=== PATIENT | male | born 1985 | race American Indian/Alaskan Native ===

== ENCOUNTER 2016-12-08 23:50 | Emergency (ER) | payer OTHER ==
--- NOTE | 2016-12-09 01:54 | XRay Report ---
FINAL REPORT EXAM: XR FOOT 2V LT HISTORY: LEFT FOOT PAIN TECHNIQUE: Two views of the left foot were submitted. FINDINGS: There are no skeletal or soft tissue abnormalities. IMPRESSION: Within normal limits.
[2016-12-09 02:22] LABS: Bilirubin,Urine NEG (Negative); Blood,Urine NEG (Negative); Ketones,Urine NEG (Negative); Leukocyte Esterase,Urine NEG (Negative); Nitrite,Urine NEG (Negative); Protein,Urine <15 mg/dL mg/dL (Negative); WBC,Urine < 1.0 /HPF (0.0-6.0)
[2016-12-09 05:50] VITALS: BP 147/74
[2016-12-09] MEDS ORDERED: MOTRIN PO ONE (07:27)
--- NOTE | 2016-12-09 07:28 | Emergency Department Report ---
ED Lower Extremity HPI - General Chief Complaint: Extremity Injury, Lower Stated Complaint: FOOT AND BACK PAIN Time Seen by Provider: 12/09/16 07:26 Source: patient Mode of arrival: Ambulatory Limitations: No Limitations - History of Present Illness Initial Comments: Patient here complaining of pain to his left foot after injured on 08/25/2016. He said he saw orthopedic doctor 2 weeks ago and given orthopedic boot which is a air cast. He is complaining of left foot pain and also lower back pain 1 week. He said he is has a history of back pain and he thinks it flared up again. Denies any urinary frequency, burning in her urgency. Denies any blood in urine. Denies reinjuring his foot. Denies any fever or chills. Denies any nausea or vomiting. Denies any radiation of pain to extremities from his back pain is in his left lower back. Denies any loss of bowel or bladder function. Pain to left lower back and left foot is 10 out of 10 and sore, painful left foot is throbbing. He said he did not take any [id number] medication he came to the emergency room. Patient was seen by another facility for left foot injury. He does have orthopedic doctor MD Complaint: foot injury (left foot pain from injury in August), other (F lower back pain) -: week(s) (1 week for back pain and 3-1/2 months for foot pain) Injury: Foot: Left (pain and left foot from previous injury) Type of Injury: other (since that he twisted his left ankle August 2016 and reported that he has ongoing back pain) Place: home Severity: severe Severity scale (0 -10): 9 Improves With: immobilization, rest Worsens With: weight bearing, movement, palpation Context: walking Associated Symptoms: able to partially bear weight. denies: snap/pop sensation , swelling, numbness, tingling Treatments Prior to Arrival: splint ( wearing an air boot cast) - Related Data Previous Rx's Medication Instructions Recorded Last Taken Type Methocarbamol [Robaxin TAB] 750 mg PO BID PRN #12 tab 12/09/16 Unknown Rx traMADol [Ultram] 50 mg PO Q6HR PRN #15 tablet 12/09/16 Unknown Rx Allergies Allergy/AdvReac Type Severity Reaction Status Date / Time Penicillins Allergy Unknown Verified 12/09/16 00:50 shellfish derived Allergy Angioedema Verified 12/09/16 00:50 ED Review of Systems ROS: Stated complaint: FOOT AND BACK PAIN Other details as noted in HPI Comment: All other systems reviewed and negative Constitutional: no symptoms reported Respiratory: no symptoms reported Cardiovascular: denies: chest pain, palpitations, dyspnea on exertion, orthopnea , edema, syncope, paroxysmal nocturnal dyspnea Gastrointestinal: denies: abdominal pain, nausea, vomiting, diarrhea, constipation Genitourinary: denies: urgency, dysuria, hematuria, discharge, testicular pain, testicular mass Musculoskeletal: back pain, arthralgia. denies: joint swelling, myalgia Skin: denies: rash Neurological: abnormal gait (from left foot injury). denies: headache, weakness , numbness, paresthesias, confusion, vertigo ED Past Medical Hx - Past Medical History Previous Medical History?: Yes Hx Asthma: Yes Additional medical history: LEFT FOOT SPRAIN - Surgical History Past Surgical History?: Yes Additional Surgical History: CIRCUMCISION - Family History Family history: hypertension - Social History Smoking Status: Never Smoker Substance Use Type: None - Medications Home Medications: Home Medications Medication Instructions Recorded Confirmed Last Taken Type Methocarbamol [Robaxin TAB] 750 mg PO BID PRN #12 tab 12/09/16 Unknown Rx traMADol [Ultram] 50 mg PO Q6HR PRN #15 tablet 12/09/16 Unknown Rx ED Physical Exam - General Limitations: No Limitations General appearance: alert, in no apparent distress - Head Head exam: Present: atraumatic, normocephalic, normal inspection - Eye Eye exam: Present: normal appearance, PERRL, EOMI. Absent: periorbital swelling , periorbital tenderness Pupils: Present: normal accommodation - ENT ENT exam: Present: normal exam, normal orophraynx, mucous membranes moist - Neck Neck exam: Present: normal inspection, full ROM, other (C-spine tenderness). Absent: tenderness, meningismus, lymphadenopathy - Respiratory Respiratory exam: Present: normal lung sounds bilaterally. Absent: respiratory distress, wheezes, rales, rhonchi, stridor, chest wall tenderness, accessory muscle use - Cardiovascular Cardiovascular Exam: Present: regular rate, normal rhythm, normal heart sounds. Absent: systolic murmur, diastolic murmur - GI/Abdominal GI/Abdominal exam: Present: soft, normal bowel sounds. Absent: distended, tenderness, guarding, rebound, rigid, organomegaly, mass, bruit, pulsatile mass , hernia - Extremities Exam Extremities exam: Present: normal capillary refill, joint swelling, other (no clubbing, cyanosis or edema to all extremities except for left foot with mild swelling and left ankle with mild swelling. +2 pulses in all extremities. No signs of neurovascular compromise). Absent: normal inspection, full ROM ( Limited of motion to left foot due to swelling and previous injury.), pedal edema, calf tenderness - Expanded Lower Extremity Exam Right Hip exam: Present: normal inspection, full ROM, pelvic stability. Absent: tenderness, swelling, abrasion, laceration, ecchymosis, deformity, crepidus, dislocation, erythema, external rotation, internal rotation, shortening Upper Leg exam: Present: normal inspection, full ROM. Absent: tenderness, swelling, abrasion, laceration, ecchymosis, deformity, crepidus, dislocation, erythema Knee exam: Present: normal inspection, full ROM, full knee extension. Absent: tenderness, swelling, abrasion, laceration, ecchymosis, deformity, crepidus, dislocation, erythema, effusion, pain w/ pronation/supination, posterior draw sign, pain/laxity with valgus, pain/laxity with varus Lower Leg exam: Present: normal inspection, full ROM. Absent: tenderness, swelling, abrasion, laceration, ecchymosis, deformity, crepidus, dislocation, erythema, palpable cord, Holden's sign Ankle exam: Present: tenderness, swelling (mild swelling). Absent: normal inspection, full ROM (Limited range of motion to ankle due to pain. Air cast removed from left lower extremity and noted mild swelling to left foot and ankle. Patient able to move but he said it's painful.), abrasion, laceration, ecchymosis, deformity, crepidus, dislocation, erythema Foot/Toe exam: Present: tenderness, swelling. Absent: normal inspection, full ROM (Limited range of motion to left foot due to previous injury. Patient with 2+ pulses.), abrasion, laceration, ecchymosis, dislocation, erythema, amputation , puncture wound, foreign body, calcaneal tenderness, tenderness at base of 5th metatarsal, nail avulsion, subungual hematoma Neuro vascular tendon exam: Present: no vascular compromise. Absent: pulse deficit, abnormal cap refill, motor deficit, sensory deficit, tendon deficit, extremity cold to touch, pallor, abnormal 2-point discrimination, decreased fine /light touch, foot drop, peroneal nerve deficit, significant pain with passive ROM of distal joint Gait: Positive: observed and limited by pain - Back Exam Back exam: Present: normal inspection, full ROM. Absent: tenderness, CVA tenderness (R), CVA tenderness (L), muscle spasm, paraspinal tenderness, vertebral tenderness, rash noted - Expanded Back Exam Expanded Back exam: Absent: saddle anesthesia Back exam: Negative Straight Leg Raising: Left, Right - Neurological Exam Neurological exam: Present: alert, oriented X3, abnormal gait (due to left foot and ankle injury that occurred in August 2016. Patient with air cast which was removed and his left foot examined and air cast replaced.), motor sensory deficit (S4/5 strength in left foot.), reflexes normal, other (no focal neurological deficit except that he has decreased strength to left foot due to injury and abnormal gait to left lower extremity due to previous injury.) - Psychiatric Psychiatric exam: Present: normal affect, normal mood - Skin Skin exam: Present: warm, dry, intact, normal color. Absent: rash ED Course Vital Signs 12/09/16 12/09/16 12/09/16 00:51 05:50 07:32 Temperature 97.0 F L 97.8 F Pulse Rate 74 64 Respiratory 18 18 16 Rate Blood Pressure 141/78 147/74 O2 Sat by Pulse 100 98 Oximetry - Reevaluation(s) Reevaluation #1: 12/09/16 08:25 Given Motrin 800 mg in the emergency room for pain. Air cast removed and the left foot and ankle examined and physical findings for mild swelling in the left foot and ankle. He has 2+ pedal pulses. No signs of neurovascular compromise. Air cast replaced and patient instructed to follow up with his orthopedic doctor for further management ED Lower Extremity MDM - Radiology Data Radiology results: report reviewed X-ray left foot reveals normal exam. There are no skeletal or soft tissue abnormalities. - Medical Decision Making ED course: Patient here reports that he injured his left foot and ankle in August 2016 and he saw his orthopedic doctor a couple weeks ago who placed him in air cast to his left lower extremity. He said he did not have any injury since then. He is having pain to the site and this is the closest hospital that he can get to. X-ray of left foot reveal no acute findings. Air cast was removed and foot examined and patient without any neurovascular compromise, he has 2+ pedal pulses the left foot. Air cast replaced and patient received Motrin 800 mg in the emergency room for pain which relieved his pain to 4 out of 10. I explained to patient that he will need to follow up with his orthopedic doctor to manage his foot and ankle injury and I will put him on Ultram to manage pain. He said he has an appointment with his orthopedic doctor coming up so I discussed with him that if he needs to see him sooner he should call the office today to schedule an appointment. Patient was understanding the discharge instruction and treatment plan. Patient back exam was normal he had no vertebral or paraspinal tenderness. He is able to ambulate with air cast with minimal limping. Discharged from the ED in stable condition Critical care attestation.: If time is entered above; I have spent that time in minutes in the direct care of this critically ill patient, excluding procedure time. ED Disposition Clinical Impression: Arthralgia of ankle or foot, left, Acute exacerbation of chronic low back pain Disposition: DC- TO HOME OR SELFCARE Is pt being admited?: No Does the pt Need Aspirin: No Condition: Stable Instructions: Arthralgia (ED), Back Pain (ED) Additional Instructions: call your orthopedic doctor today to schedule an early appointment for follow- up visit for pain control Take Ultram and Robaxin as needed for pain but please do not drive or operate any heavy machinery as these medication causes drowsiness Prescriptions: Methocarbamol [Robaxin TAB] 750 mg PO BID PRN #12 tab PRN Reason: Pain traMADol [Ultram] 50 mg PO Q6HR PRN #15 tablet PRN Reason: Pain Referrals: PRIMARY CARE, [Primary Care Provider] - 3-5 Days your ,orthopedic doctor [Other] - 12/10/16 GODFREY TONG MD [Staff Physician] - 12/10/16 Forms: Work/School Release Form(ED)
== END 2016-12-09 08:47 | disposition home or self-care (01) ==
LOC: ED 23:50
DX: M79.672 Pain in left foot (principal); M54.5 Low back pain; G89.29 Other chronic pain; Z88.0 Allergy status to penicillin; Z91.013 Allergy to seafood
CPT/HCPCS: 81001; 99284

== ENCOUNTER 2017-10-16 20:06 | Emergency (ER) | payer SELFPAY ==
[2017-10-16 20:32] VITALS: BP 160/80
[2017-10-16 21:21] LABS: Basophils % (Auto) 0.3 % (0.0-1.8); Eosinophils # (Auto) 0.2 K/mm3 (0.0-0.4); Eosinophils % (Auto) 2.4 % (0.0-4.3); Hematocrit 42.3 % (35.5-45.6); Hemoglobin 13.3 gm/dl (11.8-15.2); Lymphocytes % (Auto) 30.3 % (13.4-35.0); Mean Corpuscular HGB Conc 32 % (32-34); Mean Corpuscular Volume 75 fl (84-94); Monocytes # (Auto) 0.5 K/mm3 (0.0-0.8); Monocytes % (Auto) 8.2 % (0.0-7.3); Platelet Count 223 K/mm3 (140-440); Red Blood Count 5.67 M/mm3 (3.65-5.03); Red Cell Distribution Width 14.3 % (13.2-15.2)
[2017-10-16 21:26] LABS: Mean Corpuscular Hemoglobin 24 pg (28-32)
--- NOTE | 2017-10-16 21:28 | XRay Report ---
FINAL REPORT EXAM: XR ANKLE 3+V LT HISTORY: left ankle pain and swelling TECHNIQUE: Frontal, lateral, mortise views left ankle Comparison: X-ray left foot also performed today FINDINGS: There is no evidence of fracture or subluxation. The mortise joint is maintained. There appears to be diffuse edema of the lower leg, ankle and foot. IMPRESSION: 1. No evidence of fracture or subluxation. 2. Appearance of diffuse edema of the lower leg, ankle and foot.
[2017-10-16 21:34] LABS: INR 0.96 (0.87-1.13); Partial Thromboplastin Time 31.2 Sec. (24.2-36.6)
[2017-10-16 21:50] LABS: BUN/Creatinine Ratio 15; Blood Urea Nitrogen 12 mg/dL (9-20); Calcium 9.1 mg/dL (8.4-10.2); Hemolysis Index 9
== END 2017-10-17 | disposition left against medical advice (07) ==
LOC: ED 20:06
DX: M25.572 Pain in left ankle and joints of left foot (principal); Z53.21 Procedure and treatment not carried out due to patient leaving prior to being seen by health care provider
CPT/HCPCS: 36415; 80048; 85025; 85610; 85730